=== PATIENT | female | born 2000 | race Hispanic/Latino ===

== ENCOUNTER 2021-02-14 23:48 | Emergency (ER) | payer OTHER ==
[2021-02-15] MEDS ORDERED: Lidocaine 2% PF 5 ML VIAL ONE (01:13)
[2021-02-15] MEDS ORDERED: Lidocaine 1% PF 5 ML VIAL ONE (01:32)
== END 2021-02-15 03:17 | disposition home or self-care (01) ==
LOC: ERS 23:48
DX: S61.452A Open bite of left hand, initial encounter (principal); F17.290 Nicotine dependence, other tobacco product, uncomplicated; W54.0XXA Bitten by dog, initial encounter
CPT/HCPCS: 12002; J2001